=== PATIENT | female | born 1990 | race American Indian/Alaskan Native ===

== ENCOUNTER 2016-11-30 11:21 | Emergency (ER) | payer OTHER ==
[2016-11-30] MEDS ORDERED: KEPPRA 1,000 MG/NS 0.75% 100ML 1,000 MG/100 ML BAG IV ONE ×2 (12:40→12:42)
[2016-11-30 13:11] LABS: Mean Corpuscular HGB Conc 30 % (30-34); Mean Corpuscular Volume 84 fl (79-97); Platelet Count 329 K/mm3 (140-440); Red Blood Count 3.99 M/mm3 (3.65-5.03); Red Cell Distribution Width 17.3 % (13.2-15.2); White Blood Count 11.9 K/mm3 (4.5-11.0)
[2016-11-30 13:12] LABS: Hematocrit 33.7 % (30.3-42.9); Mean Corpuscular Hemoglobin 25 pg (28-32)
[2016-11-30 13:14] LABS: Anion Gap 29 mmol/L; BUN/Creatinine Ratio 15.71; Blood Urea Nitrogen 11 mg/dL (7-17); Carbon Dioxide 11 mmol/L (22-30); Chloride 98.3 mmol/L (98-107); Glucose 137 mg/dL (65-100); Potassium 3.4 mmol/L (3.6-5.0); Sodium 135 mmol/L (137-145)
[2016-11-30] MEDS ORDERED: TYLENOL PO ONE (13:20)
[2016-11-30] MEDS ORDERED: K-DUR PO ONE (13:24)
[2016-11-30] MEDS ORDERED: NACL 0.9% 1000 ML 1,000 ML IV ONE ×2 (13:24→14:35)
--- NOTE | 2016-11-30 14:09 | Cat Scan Report ---
CRANIAL CT SCAN: Seizures. Serial contiguous axial images were obtained through the cranium. Intravenous contrast material was not administered. The ventricles are normal in size and appearance. There is no mass effect or midline shift. No areas of abnormally increased or decreased attenuation are seen. No mass lesion is seen. The mastoid air cells and visualized portions of the sinuses are normal. IMPRESSION: Cranial CT scan within normal limits.
--- NOTE | 2016-11-30 15:35 | Ultrasound Report ---
OB ultrasound: Seizures and . Endovaginal and transabdominal imaging demonstrates that the uterus measures 4.8 x 6.7 x 9.9 cm. The endometrium is thick measuring 21.4 mm. There is a small saclike structure consistent with a gestational sac within the endometrium. It measures 9 mm in size which is equivalent to an approximate gestational age of 5 weeks 5 days. There is a small focal echo within the sac but this cannot be identified as a gestation. No evidence of heart motion. The right ovary measures 3 cm in size and the left ovary measures 2.7 cm. A small amount of cul-de-sac fluid is identified. Impressions: Probable early intrauterine . Findings suggest yolk sac but no identified fetus.
--- NOTE | 2016-11-30 15:55 | Emergency Department Report ---
ED Seizure HPI - General Chief Complaint: Seizure Stated Complaint: SEIZURE Time Seen by Provider: 11/30/16 12:42 Source: patient Mode of arrival: Ambulatory Limitations: No Limitations - History of Present Illness Initial Comments: 26 year old female with no significant past medical history presents to the hospital complaints of seizure. Patient seizure about 9:15 AM lasting approximately 10 minutes. Positive urinary incontinence and patient bit her tongue during this seizure. While waiting to be seen in the ED patient had a second seizure that was witnessed by staff. Patient was initially postictal but alert to get answer questions during my ED evaluation. She complains of global headache that started after seizure. No other pain reported. Patient denies any recent trauma, focal weakness, or numbness. - Related Data Previous Rx's Medication Instructions Recorded Last Taken Type Pnv95/Ferrous Fumarate/FA 1 each PO DAILY #30 tablet 11/30/16 Unknown Rx [Prenavite Tablet] lamoTRIgine [LaMICtal] 25 mg PO QDAY #30 tab 11/30/16 Unknown Rx Allergies Allergy/AdvReac Type Severity Reaction Status Date / Time No Known Allergies Allergy Unverified 11/30/16 12:08 ED Review of Systems ROS: Stated complaint: SEIZURE Other details as noted in HPI Comment: All other systems reviewed and negative Other: Constitutional: No fevers chills Eyes: No eye pain visual changes ENT: tongue biting during the seizure Neck: Denies pain Respiratory: Denies cough wheezing shortness of breath Cardiovascular: Denies chest pain, palpitations, syncope GI: Denies abdominal pain, nausea, vomiting, diarrhea : Denies dysuria Musculoskeletal: Denies back pain, joint swelling Skin: Denies rash, lesions, erythema Neurologic: Denies numbness, weakness Psychiatric: Denies suicidal ideation, hallucinations ED Past Medical Hx - Past Medical History Previous Medical History?: No - Surgical History Past Surgical History?: No - Social History Smoking Status: Current Every Day Smoker Substance Use Type: Marijuana - Medications Home Medications: Home Medications Medication Instructions Recorded Confirmed Last Taken Type Pnv95/Ferrous Fumarate/FA 1 each PO DAILY #30 tablet 11/30/16 Unknown Rx [Prenavite Tablet] lamoTRIgine [LaMICtal] 25 mg PO QDAY #30 tab 11/30/16 Unknown Rx ED Physical Exam - General Limitations: No Limitations - Other Other exam information: General: No limitations, patient is alert in no acute distress Head exam: Atraumatic, normocephalic Eyes exam: Normal appearance, pupils equal reactive to light ENT: Moist mucous membrane, tongue abrasion at the lateral borders no active bleeding Neck exam: Normal inspection, full range of motion, no meningismus nontender Respiratory exam: Clear to auscultation bilateral, no wheezes, rales, crackles Cardiovascular: Normal rate and rhythm, normal heart sounds Abdomen: Soft, nondistended, and nontender, with normal bowel sounds, no rebound, or guarding Extremity: Full range of motion normal inspection no deformity Back: Normal Inspection, full range of motion, no tenderness Neurologic: Alert, oriented x3, cranial nerves intact, no motor or sensory deficit Psychiatric: normal affect, normal mood Skin: Warm, dry, intact ED Course Vital Signs 11/30/16 11/30/16 11/30/16 12:03 12:47 13:50 Temperature 98.2 F Pulse Rate 82 103 H Respiratory 18 16 Rate Blood Pressure 112/61 Blood Pressure 116/64 [Left] O2 Sat by Pulse 100 99 98 Oximetry 11/30/16 11/30/16 14:30 17:59 Temperature Pulse Rate 83 89 Respiratory 16 16 Rate Blood Pressure Blood Pressure 114/51 112/68 [Left] O2 Sat by Pulse 98 99 Oximetry - Reevaluation(s) Reevaluation #1: 11/30/16 15:53 Patient given Keppra IV given second seizure that occurred in the department. Lab work returned with positive - Consultations Consultation #1: 11/30/16 14:30 Case was discussed with Dr. Martins neurologist. Recommend limited to 25 mg daily for seizures in a patient. Patient will need titration of this medication as outpatient. ED Medical Decision Making - Lab Data Result diagrams: 11/30/16 12:41 11/30/16 16:31 Lab Results 11/30/16 11/30/16 11/30/16 Range/Units 12:41 12:41 12:48 WBC 11.9 H (4.5-11.0) K/mm3 RBC 3.99 (3.65-5.03) M/mm3 Hgb 10.0 L (10.1-14.3) gm/dl Hct 33.7 (30.3-42.9) % MCV 84 (79-97) fl MCH 25 L (28-32) pg MCHC 30 (30-34) % RDW 17.3 H (13.2-15.2) % Plt Count 329 (140-440) K/mm3 VBG pH (7.320-7.420) Sodium 135 L (137-145) mmol/L Potassium 3.4 L (3.6-5.0) mmol/L Chloride 98.3 (98-107) mmol/L Carbon Dioxide 11 L (22-30) mmol/L Anion Gap 29 mmol/L BUN 11 (7-17) mg/dL Creatinine 0.7 (0.7-1.2) mg/dL Estimated GFR > 60 ml/min BUN/Creatinine Ratio 15.71 % Glucose 137 H (65-100) mg/dL Lactic Acid (0.7-2.0) mmol/L Calcium 9.0 (8.4-10.2) mg/dL Magnesium 1.9 (1.7-2.3) mg/dL Total Creatine Kinase (30-135) units/L HCG, Qual (Negative) HCG, Quant (0-4) mIU/mL 11/30/16 11/30/16 11/30/16 Range/Units 12:48 12:48 13:35 WBC (4.5-11.0) K/mm3 RBC (3.65-5.03) M/mm3 Hgb (10.1-14.3) gm/dl Hct (30.3-42.9) % MCV (79-97) fl MCH (28-32) pg MCHC (30-34) % RDW (13.2-15.2) % Plt Count (140-440) K/mm3 VBG pH (7.320-7.420) Sodium (137-145) mmol/L Potassium (3.6-5.0) mmol/L Chloride (98-107) mmol/L Carbon Dioxide (22-30) mmol/L Anion Gap mmol/L BUN (7-17) mg/dL Creatinine (0.7-1.2) mg/dL Estimated GFR ml/min BUN/Creatinine Ratio % Glucose (65-100) mg/dL Lactic Acid 3.7 H* (0.7-2.0) mmol/L Calcium (8.4-10.2) mg/dL Magnesium (1.7-2.3) mg/dL Total Creatine Kinase (30-135) units/L HCG, Qual Positive (Negative) HCG, Quant 8388 H (0-4) mIU/mL 11/30/16 11/30/16 Range/Units 13:35 13:35 WBC (4.5-11.0) K/mm3 RBC (3.65-5.03) M/mm3 Hgb (10.1-14.3) gm/dl Hct (30.3-42.9) % MCV (79-97) fl MCH (28-32) pg MCHC (30-34) % RDW (13.2-15.2) % Plt Count (140-440) K/mm3 VBG pH 7.323 (7.320-7.420) Sodium (137-145) mmol/L Potassium (3.6-5.0) mmol/L Chloride (98-107) mmol/L Carbon Dioxide (22-30) mmol/L Anion Gap mmol/L BUN (7-17) mg/dL Creatinine (0.7-1.2) mg/dL Estimated GFR ml/min BUN/Creatinine Ratio % Glucose (65-100) mg/dL Lactic Acid (0.7-2.0) mmol/L Calcium (8.4-10.2) mg/dL Magnesium (1.7-2.3) mg/dL Total Creatine Kinase 275 H (30-135) units/L HCG, Qual (Negative) HCG, Quant (0-4) mIU/mL - Radiology Data Radiology results: report reviewed CT head: No acute findings Ultrasound transvaginal/pelvic: Probable early IUP findings suggestive psych but no identified fetus. IUP correlating with 5 weeks and 5 days - Medical Decision Making 3:56 PM note Patient has a low bicarbonate, with a anion gap likely secondary to lactic acidosis due to seizures. Venous pH is normal. Patient receiving IV fluid hydration. We'll repeat values to ensure trending downward. Awaiting urine collection for UA and UDS Patient signed out to Dr. Lopez. Recheck repeat BMP and lactic acid, UA, UDS. Ensure downward trend, CO2 improvement, lactic acidosis improvement, Treat if urine infection. Patient would need outpatient neurology evaluation, SUPER[employer] evaluation, and driving restriction instructions given recent seizure Chart reviewed a lactic acid and bicarbonate improved prior to patient discharge - Differential Diagnosis ICH, mass, electrolyte abnormality, drug use, new onset sz Critical Care Time: No Critical care attestation.: If time is entered above; I have spent that time in minutes in the direct care of this critically ill patient, excluding procedure time. ED Disposition Clinical Impression: New onset seizure, Early stage of Disposition: DISCHARGED TO HOME OR SELFCARE Is pt being admited?: No Does the pt Need Aspirin: No Condition: Stable Instructions: (ED), New-Onset Seizure in Adults (ED) Additional Instructions: Take medications as prescribed. Return if symptoms worsen. You cannot drive or operate heavy machinery for at least 6 months (see details on discharge instructions). You're being started on Lamictal for seizures. This is a starting dose and will need to be slowly increased. It is very important that you follow up with a neurologist for further management and evaluation. The ultrasound today corresponds to 5 weeks and 5 days . I have provided a SUPERVISORY [employer]IVIL ENGINEER doctor name for follow-up as well. Take Tylenol only as needed for pain. Prescriptions: lamoTRIgine [LaMICtal] 25 mg PO QDAY #30 tab Pnv95/Ferrous Fumarate/FA [Prenavite Tablet] 1 each PO DAILY #30 tablet Referrals: [facility] [Provider Group] - 3-5 Days (anesthesia assistant) VALENTÍN LO MD [Staff Physician] - 3-5 Days (neurologist) WARD ALEX MD [Staff Physician] - 3-5 Days (neurologist) Time of Disposition: 16:18 (s/o to dr lopez)
[2016-11-30 17:11] LABS: Blood Urea Nitrogen 9 mg/dL (7-17); Calcium 8.7 mg/dL (8.4-10.2); Carbon Dioxide 22 mmol/L (22-30); Glucose 106 mg/dL (65-100); Sodium 135 mmol/L (137-145)
[2016-11-30 17:17] LABS: Urine Drugs of Abuse Note Disclamer
[2016-11-30 17:23] LABS: Anion Gap 16 mmol/L
[2016-11-30 17:24] LABS: Bilirubin,Urine NEG (Negative); Blood,Urine SM (Negative); Ketones,Urine NEG (Negative); Leukocyte Esterase,Urine NEG (Negative); Mucus,Urine FEW /HPF; Nitrite,Urine NEG (Negative); Protein,Urine <15 mg/dL mg/dL (Negative); Urobilinogen,Urine < 2.0 mg/dL (<2.0)
[2016-11-30 18:00] VITALS: BP 112/68
== END 2016-11-30 18:08 | disposition home or self-care (01) ==
LOC: ED 11:21
DX: O26.891 Other specified pregnancy related conditions, first trimester (principal); R56.9 Unspecified convulsions; F17.200 Nicotine dependence, unspecified, uncomplicated; F12.10 Cannabis abuse, uncomplicated; Z3A.01 Less than 8 weeks gestation of pregnancy
CPT/HCPCS: 36415; 70450; 76801; 76817; 80048; 80307; 81001; 82140; 82550; 82805; 83735; 84702; 84703; 85027; 96361; 96365; 99284; J1953; J7030

== ENCOUNTER 2018-09-14 19:01 | Emergency (ER) | payer MEDICAID, OTHER ==
[2018-09-14] MEDS ORDERED: ATIVAN ONE (19:06)
[2018-09-14] MEDS ORDERED: ATIVAN IV ONE (19:07)
[2018-09-14] MEDS ORDERED: NACL 0.9% 1000 ML 1,000 ML IV ONE (19:10)
[2018-09-14] MEDS ORDERED: KEPPRA 1,000 MG/NS 0.75% 100ML 1,000 MG/100 ML BAG IV ONE (19:12)
--- NOTE | 2018-09-14 19:15 | Emergency Department Report ---
ED Seizure HPI - General Stated Complaint: SEIZURE Time Seen by Provider: 09/14/18 19:10 - History of Present Illness Initial Comments: Patient is 27 years old female was history of seizure. Patient was on Lamictal 25 mg. The patient is noncompliant with her medication. Patient brought to the emergency room via EMS for evaluation of seizure. EMS stated that patient had one seizure and she was still confused and transported to the emergency room as soon as she entered the emergency room patient had generalized tonic-clonic seizure and bit her tongue, patient immediately received Ativan 2 mg which aborted the seizure immediately. No injury. MD Complaint: seizure -: Sudden Description of Episode: loss of consciousness, tonic-clonic movement, post-event confusion Witnessed:: Yes Trauma: No Seizure History: known seizure disorder Place: home Possible Precipitating Event: none Associated Symptoms: denies other symptoms Treatments Prior to Arrival: none - Related Data Home Medications Medication Instructions Recorded Confirmed Last Taken No Known Home Medications [No 09/14/18 09/14/18 Unknown Reported Home Medications] Allergies Allergy/AdvReac Type Severity Reaction Status Date / Time No Known Allergies Allergy Unverified 11/30/16 12:08 ED Review of Systems ROS: Stated complaint: SEIZURE Other details as noted in HPI Comment: All other systems reviewed and negative Constitutional: denies: chills, fever Respiratory: denies: cough, orthopnea, shortness of breath, SOB with exertion, SOB at rest Cardiovascular: denies: chest pain ED Past Medical Hx - Social History Smoking Status: Current Every Day Smoker Substance Use Type: Marijuana - Medications Home Medications: Home Medications Medication Instructions Recorded Confirmed Last Taken Type No Known Home Medications [No 09/14/18 09/14/18 Unknown History Reported Home Medications] ED Physical Exam - General General appearance: postictal - Head Head exam: Present: atraumatic, normocephalic, normal inspection - Eye Eye exam: Present: normal appearance - ENT ENT exam: Present: normal exam, normal orophraynx, mucous membranes moist - Neck Neck exam: Present: normal inspection, full ROM. Absent: tenderness, meningismus, lymphadenopathy, thyromegaly - Respiratory Respiratory exam: Present: normal lung sounds bilaterally. Absent: respiratory distress, wheezes, rales, rhonchi, stridor, chest wall tenderness, accessory muscle use, decreased breath sounds, prolonged expiratory - Cardiovascular Cardiovascular Exam: Present: regular rate, normal rhythm, normal heart sounds - GI/Abdominal GI/Abdominal exam: Present: soft, normal bowel sounds. Absent: distended, tenderness, guarding, rebound, rigid, mass, bruit, pulsatile mass, hernia - Extremities Exam Extremities exam: Present: normal inspection, full ROM, normal capillary refill. Absent: tenderness, pedal edema, calf tenderness - Back Exam Back exam: Present: normal inspection, full ROM. Absent: CVA tenderness (R), CVA tenderness (L) - Neurological Exam Neurological exam: Present: alert, oriented X3, CN II-XII intact, normal gait, reflexes normal - Skin Skin exam: Present: warm, intact, normal color ED Course Vital Signs 09/14/18 09/14/18 09/14/18 19:10 19:15 19:30 Pulse Rate 107 H 105 H 110 H Respiratory 24 25 H 24 Rate Blood Pressure 120/68 120/68 O2 Sat by Pulse 100 100 Oximetry 09/14/18 09/14/18 09/14/18 19:45 20:00 20:04 Pulse Rate 117 H 127 H Respiratory 24 27 H 10 L Rate Blood Pressure 120/76 120/80 O2 Sat by Pulse 100 100 100 Oximetry 09/14/18 09/14/18 09/14/18 20:15 20:30 20:45 Pulse Rate 104 H 105 H 106 H Respiratory 26 H 25 H 24 Rate Blood Pressure 111/56 106/59 97/64 O2 Sat by Pulse 100 93 Oximetry 09/14/18 09/14/18 09/14/18 21:00 21:15 21:32 Pulse Rate 98 H 119 H Respiratory 18 24 Rate Blood Pressure 99/60 112/67 112/67 O2 Sat by Pulse 100 Oximetry 09/14/18 09/14/18 09/14/18 21:46 22:00 22:15 Pulse Rate 91 H 93 H 98 H Respiratory 22 27 H 24 Rate Blood Pressure 133/91 143/81 163/79 O2 Sat by Pulse 100 100 Oximetry ED Medical Decision Making - Lab Data Result diagrams: 09/14/18 19:20 09/14/18 19:20 - Medical Decision Making Patient is 27 years old female was history of seizure. Patient was on Lamictal 25 mg. The patient is noncompliant with her medication. Patient brought to the emergency room via EMS for evaluation of seizure. EMS stated that patient had one seizure and she was still confused and transported to the emergency room as soon as she entered the emergency room patient had generalized tonic-clonic seizure and bit her tongue, patient immediately received Ativan 2 mg which aborted the seizure immediately. No injury. Patient evaluated by me multiple times. Patient alert and oriented in no acute distress. Patient did not have any seizure after the Ativan. Labs reviewed and showed a leukocytosis and this is most likely secondary to seizure since there is no other sources. I will start patient on Keppra and I advised that he'll always have primary care physician in the next 2-3 days and to return to the ER if she developed any new symptoms. Critical care attestation.: If time is entered above; I have spent that time in minutes in the direct care of this critically ill patient, excluding procedure time. ED Disposition Clinical Impression: Seizure Disposition: DC-01 TO HOME OR SELFCARE Is pt being admited?: No Condition: Stable Instructions: Recurrent Seizures Adult (ED) Referrals: [facility] [Provider Group] - 3-5 Days
[2018-09-14 19:43] LABS: Basophils # (Auto) 0.1 K/mm3 (0.0-0.1); Basophils % (Auto) 0.5 % (0.0-1.8); Eosinophils % (Auto) 0.1 % (0.0-4.3); Hemoglobin 11.2 gm/dl (10.1-14.3); Lymphocytes # (Auto) 1.7 K/mm3 (1.2-5.4); Lymphocytes % (Auto) 10.5 % (13.4-35.0); Mean Corpuscular HGB Conc 30 % (30-34); Mean Corpuscular Volume 87 fl (79-97); Monocytes # (Auto) 0.7 K/mm3 (0.0-0.8); Monocytes % (Auto) 4.5 % (0.0-7.3); Platelet Count 358 K/mm3 (140-440); Red Cell Distribution Width 17.1 % (13.2-15.2)
[2018-09-14 19:44] LABS: Hematocrit 37.6 % (30.3-42.9)
[2018-09-14 20:08] LABS: Alanine Aminotransferase 8 units/L (7-56); Albumin 4.3 g/dL (3.9-5); BUN/Creatinine Ratio 14; Bilirubin,Direct < 0.2 mg/dL (0-0.2); Blood Urea Nitrogen 13 mg/dL (7-17); Calcium 9.1 mg/dL (8.4-10.2); Hemolysis Index 3
[2018-09-14 22:05] LABS: Bilirubin,Urine NEG (Negative); Blood,Urine SM (Negative); Color,Urine Yellow (Yellow); Mucus,Urine 1+ /HPF; Urobilinogen,Urine < 2.0 mg/dL (<2.0)
[2018-09-14 22:19] LABS: Amphetamine Screen,Urine PRESUMPTIVE NEGATIVE; Benzodiazepines Screen,Urine PRESUMPTIVE NEGATIVE; Cocaine Screen,Urine PRESUMPTIVE NEGATIVE; Methadone Screen,Urine PRESUMPTIVE NEGATIVE; Opiate Screen,Urine PRESUMPTIVE NEGATIVE
[2018-09-14 22:33] LABS: Cannabinoid Screen,Urine PRESUMPTIVE POSITIVE
[2018-09-14 22:58] VITALS: BP 102/56
== END 2018-09-14 22:58 | disposition home or self-care (01) ==
LOC: ED 19:01
DX: R56.9 Unspecified convulsions (principal); F17.200 Nicotine dependence, unspecified, uncomplicated; F12.10 Cannabis abuse, uncomplicated
CPT/HCPCS: 36415; 80048; 80076; 80307; 81001; 84703; 85025; 96365; 96366; 96375; 99284; J1953; J2060; J7030